=== PATIENT | female | born 1960 | race Caucasian/White ===

== ENCOUNTER 2017-07-12 07:10 | Outpatient (CLI) | payer OTHER ==
[~2017-07-12 07:10] MED LIST: NABUMETONE500 MG PO; PERCOCET 5/3251 TAB PO
== END 2017-07-12 07:46 | disposition home or self-care (01) ==
LOC: LAB 07:10
DX: D51.1 Vitamin B12 deficiency anemia due to selective vitamin B12 malabsorption with proteinuria (principal); D51.0 Vitamin B12 deficiency anemia due to intrinsic factor deficiency

== ENCOUNTER 2021-05-15 12:33 | Outpatient (CLI) | payer OTHER | END 2021-05-15 12:36 | disposition home or self-care (01) | LOC: LAB 12:33 | PROVIDERS: ATTEND Internal Medicine Hematology & Oncology | DX: I10 Essential (primary) hypertension (principal) ==

== ENCOUNTER → 2021-06-02 | Outpatient (CLI) | payer OTHER | END | disposition home or self-care (01) | LOC: TOM 08:18 | PROVIDERS: ATTEND Internal Medicine Hematology & Oncology | DX: D68.32 Hemorrhagic disorder due to extrinsic circulating anticoagulants (principal); Z80.3 Family history of malignant neoplasm of breast; D51.1 Vitamin B12 deficiency anemia due to selective vitamin B12 malabsorption with proteinuria; D51.8 Other vitamin B12 deficiency anemias; K29.40 Chronic atrophic gastritis without bleeding; E04.2 Nontoxic multinodular goiter; E03.8 Other specified hypothyroidism; E55.9 Vitamin D deficiency, unspecified; E56.1 Deficiency of vitamin K; D68.8 Other specified coagulation defects; K90.89 Other intestinal malabsorption; Q25.44 Congenital dilation of aorta | CPT/HCPCS: 71270; Q9965; 71275 ==